=== PATIENT | male | born 1945 | race Caucasian/White ===

== ENCOUNTER 2017-10-01 10:50 | Emergency (ER) | payer MEDICARE ==
[~2017-10-01] VITALS: Ht 175.3 cm; Wt 86.2 kg
[~2017-10-01 10:50] MED LIST: BACLOFEN10 MG PO; DOXYCYCLINE HY100 MG PO; TYLENOL WITH C1 EACH PO
[2017-10-01] MEDS ORDERED: TETANUS/DIPHTHERIA TOX ADULT 0.5 ML SYR IM ONE (11:30)
[2017-10-01] MEDS ORDERED: LIDOCAINE 1% W/EPINEPHRINE 20 ML VIAL INJ ONE (11:30)
[2017-10-01] MEDS ORDERED: BACITRACIN ZINC 0.9GM TP ONE (12:00)
--- NOTE | 2017-10-01 12:37 | Diagnostic Imaging Report ---
Hand Complete CPT code: 91735 Indication:Laceration Technique: Three views of the right hand obtained Comparison: None. Findings: The area of injury is the second and third metacarpals Distal radius and ulna appear intact. Carpal bones appear generally well aligned. No fracture, dislocation, focal osseous lesion. No radiopaque foreign bodies in the soft tissues. IMPRESSION: No evidence for displaced fracture or current dislocation of the hand. No radiopaque foreign bodies in the soft tissues. Signed by: Dr. Oneal Burgess MD on 10/01/2017 12:33 PM
[2017-10-01 12:58] VITALS: BP 118/79
== END 2017-10-01 13:07 | disposition home or self-care (01) ==
LOC: ER 10:50
DX: S61.411A Laceration without foreign body of right hand, initial encounter (principal); W23.1XXA Caught, crushed, jammed, or pinched between stationary objects, initial encounter; Y93.89 Activity, other specified; Y92.008 Other place in unspecified non-institutional (private) residence as the place of occurrence of the external cause; F17.220 Nicotine dependence, chewing tobacco, uncomplicated
CPT/HCPCS: 90471; 90714; 99284

== ENCOUNTER → 2022-11-09 | Outpatient (CLI) | payer MEDICARE ==
[~2022-11-09] MED LIST changes: +FENTANYL CITRATE/PF 100MCG/2 ML INJ ONE; +LIDOCAINE HCL 1% LOCAL INJ 20 ML VIAL ONE; +MIDAZOLAM HCL 2 MG/2 ML VIAL ONE; +SODIUM CHLORIDE 0.9% 250ML 250 ML ONE
[2022-11-09 09:40] LABS: BASOPHILS # (AUTO) 0.1 (0.0-0.1); BASOPHILS % 0.6 % (0.0-1.0); EOSINOPHILS # (AUTO) 0.3 (0.0-0.4); HEMATOCRIT 39.8 % (38.2-49.6); HEMOGLOBIN 13.3 g/dL (14.0-18.0); LYMPHOCYTES # (AUTO) 1.9 (1.0-3.2); LYMPHOCYTES % 23.5 % (18.0-39.1); MEAN CORPUSCULAR HEMOGLOBIN 30.9 pg (28-32); MEAN CORPUSCULAR HGB CONC 33.4 g/dL (31-35); MEAN CORPUSCULAR VOLUME 92.3 fL (81-99); MONOCYTES # (AUTO) 0.9 (0.2-0.8); MONOCYTES % 10.8 % (4.4-11.3); NEUTROPHILS # (AUTO) 5.1 (2.1-6.9); NEUTROPHILS % 61.9 % (38.7-80.0); PLATELET COUNT 264 x10e3/uL (140-360); RED BLOOD COUNT 4.31 x10e6/uL (4.3-5.7); RED CELL DISTRIBUTION WIDTH 13.2 % (11.7-14.4)
[2022-11-09 09:48] LABS: PROTHROMBIN TIME 13.7 seconds (11.9-14.5)
[2022-11-09 09:53] LABS: ANION GAP 12.4 mmol/L (8-16); CALCIUM 8.7 mg/dL (8.4-10.2); CREATININE, SERUM 0.86 mg/dL (0.72-1.25); POTASSIUM 4.4 mmol/L (3.5-5.1)
[2022-11-09 10:03] LABS: PARTIAL THROMBOPLASTIN TIME 37.7 seconds (23.8-35.5)
== END ==
LOC: CT 09:03
PROVIDERS: ATTEND Internal Medicine
DX: R91.8 Other nonspecific abnormal finding of lung field (principal)
CPT/HCPCS: 32408; 36415; 71045; 77012; 80048; 85025; 85610; 85730; 88305; 88342; J2001; J2250; J3010; J7050; 99152